=== PATIENT | female | born 1985 | race Caucasian/White ===

== ENCOUNTER 2021-07-04 10:58 | Day surgery (SDC) | payer BC ==
[2021-07-04] MEDS ORDERED: Xylocaine 1% Vial 30 ML PF IJ ONE (10:59)
[2021-07-04] MEDS ORDERED: Decadron 4 MG INJ IJ ONE (10:59)
[2021-07-04] MEDS ORDERED: Lactated Ringers 1,000 ML IV ONE (13:35)
[2021-07-04] MEDS ORDERED: DIPRIVAN 200 MG/20 ML IV ONE (14:05)
--- NOTE | 2021-07-04 16:08 | XRAY ---
Indication: Right piriformis injection. Intraoperative fluoroscopy provided for 13 seconds. Single digital spot image submitted for interpretation demonstrates posterior needle tip projecting over the expected right piriformis muscle. Small amount of contrast injected for needle tip placement. Correlate with intraoperative findings/report.
--- NOTE | 2021-07-04 16:21 | XRAY ---
13 seconds fluoroscopy time in surgery for injection of the right piriformis muscle.
== END 2021-07-04 14:25 | disposition home or self-care (01) ==
LOC: SDC-PAIN 10:58
PROVIDERS: ATTEND Psychiatry & Neurology Pain Medicine
DX: M79.18 Myalgia, other site (principal); Z79.899 Other long term (current) drug therapy
CPT/HCPCS: 20552; 72020; 76942; 77002; J1100; J2001; J2704; Q9966

== ENCOUNTER 2021-07-25 12:34 | Day surgery (SDC) | payer BC ==
[2021-07-25] MEDS ORDERED: BUPIVACAINE 0.5% VIAL IJ ONE (12:35)
[2021-07-25] MEDS ORDERED: Depo-Medrol 40 MG/ML IM ONE (12:35)
[2021-07-25] MEDS ORDERED: Lactated Ringers 1,000 ML IV ONE (14:30)
[2021-07-25] MEDS ORDERED: DIPRIVAN 200 MG/20 ML IV ONE (15:03)
--- NOTE | 2021-07-25 17:21 | XRAY ---
13 seconds fluoroscopy time in surgery for injection of the right ischial bursa.
--- NOTE | 2021-07-25 17:22 | XRAY ---
Indication: Right ischial bursa injection. Intraoperative fluoroscopy provided for 13 seconds. Single digital spot image submitted for interpretation demonstrates posterior needle tip projecting inferior to the right initial tuberosity. Small amount of contrast injected for needle tip placement. Correlate with intraoperative findings/report.
== END 2021-07-25 15:25 | disposition home or self-care (01) ==
LOC: SDC-PAIN 12:34
PROVIDERS: ATTEND Psychiatry & Neurology Pain Medicine
DX: M70.71 Other bursitis of hip, right hip (principal); Z79.899 Other long term (current) drug therapy
CPT/HCPCS: 20610; 72020; 77002; J1030; J2704; Q9966